=== PATIENT | female | born 1990 | race Caucasian/White ===

== ENCOUNTER 2017-09-09 23:10 | Emergency (ER) | payer BC, OTHER ==
[~2017-09-09] VITALS: Ht 154.9 cm; Wt 57.4 kg
[2017-09-09 23:18] VITALS: TEMP 36.7; Ht 154.9 cm; Wt 57.4 kg
[2017-09-10 00:05] LABS: BASO % 0.2 %; BASO ABS # 0.01 K/uL (0-0.2); EOS % 1.5 %; EOS ABS # 0.09 K/uL (0-0.5); HEMOGLOBIN 13.7 g/dL (12.0-16.0); IG# 0.01 K/uL (0.00-0.02); LYMPH % 36.6 %; LYMPH ABS # 2.15 K/uL (1.2-3.4); MEAN CELL VOLUME 90.9 fL (80-100); MEAN CORPUSCULAR HEMOGLOBIN 31.9 pg (25-34); MEAN CORPUSCULAR HGB CONC 35.1 g/dl (32-36); MEAN PLATELET VOLUME 9.8 fL (7.4-10.4); MONO ABS # 0.41 K/uL (0.11-0.59); NEUT % 54.5 %; NEUT ABS # 3.21 K/uL (1.4-6.5); PLATELET COUNT 234 K/uL (130-400); RED CELL DISTRIBUTION WIDTH CV 12.6 % (11.5-14.5); RED CELL DISTRIBUTION WIDTH SD 42.1 fL (36.4-46.3); WHITE BLOOD COUNT 5.88 K/uL (4.8-10.8)
[2017-09-10 00:26] LABS: ALBUMIN 3.6 gm/dl (3.4-5.0); ALT/SGPT 20 U/L (12-78); AST/SGOT 18 U/L (15-37); BLOOD UREA NITROGEN 9 mg/dl (7-18); CALCIUM 8.7 mg/dl (8.5-10.1); CARBON DIOXIDE 30 mmol/L (21-32); GLUCOSE 105 mg/dl (70-99); LIPASE 198 U/L (73-393); POTASSIUM 3.7 mmol/L (3.5-5.1); SODIUM 140 mmol/L (136-145)
[2017-09-10 00:29] LABS: ALKALINE PHOSPHATASE 126 U/L (45-117); TOTAL PROTEIN 7.5 gm/dl (6.4-8.2)
[2017-09-10 02:07] VITALS: BP 119/66; PULSE 79; O2SAT 97
--- NOTE | 2017-09-10 05:29 | EMERGENCY ROOM VISIT NOTE ---
History Report prepared by Miquel: José Arellano Under the Supervision of: Dr. Jessica Lema D.O. First contact with patient: 23:21 Chief Complaint: ABDOMINAL PAIN Stated Complaint: RIGHT SIDE ABD PAIN History of Present Illness The patient is a 27 year old female who presents to the Emergency Room with complaints of persistent right sided abdominal pain that began a few days ago. The patient states that her pain worsened acutely today, and she now feels nauseated as well. She has not had any vomiting episodes, and also denies any diarrhea, constipation, or burning with urination. The patient notes that she felt "really warm" today, but has not had any recorded fevers. The patient does have a confirmed kidney stone on the right that is 5 mm is size. 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 She was told that the stone was impassable, but has not followed with urology yet. The patient was not having any pain at the time of this finding. She has no history of surgeries on her abdomen. Source of History: patient Onset: a few days ago Position: abdomen (Right sided) Timing: worsening, other (Persistent) Associated Symptoms: + nausea, No vomiting, No diarrhea, No urinary symptoms Review of Systems See HPI for pertinent positives & negatives. A total of 10 systems reviewed and were otherwise negative. Past Medical & Surgical 5 mm right-sided kidney Stone diagnosed a few months ago. Family History Cancer Diabetes mellitus Gallbladder disease Heart disease Hypertension Kidney disease Kidney stones Lung disease Seizures Social History Smoking Status: Never Smoker Alcohol Use: occasionally Housing Status: lives with significant other Occupation Status: employed Physical Exam Vital Signs Date Time Temp Pulse Resp B/P (MAP) Pulse Ox O2 Delivery O2 Flow Rate FiO2 09/10/17 02:07 79 18 119/66 97 Room Air 09/10/17 01:19 80 18 118/69 99 Room Air 09/09/17 23:18 36.7 89 18 121/71 98 Room Air Physical Exam HEENT: Head - normocephalic and atraumatic Pupils are equal, round, and reactive to light. Extraocular eye muscles are intact, and sclera are anicteric. Nose - moist nasal mucosa without discharge. Mouth - moist buccal mucosa. Oropharynx is nonerythematous and there is no tonsillar exudate or edema noted. Neck: Supple; no cervical lymphadenopathy, no thyromegaly. Heart: Regular rate and rhythm. There is a normal S1 and S2 with no murmurs, clicks, or gallops appreciated. Lungs: Clear to auscultation bilaterally with no wheezes, rales, or rhonchi. Abdomen: Soft, with tenderness to palpation in the right lower quadrant, nondistended, with good bowel sounds. There are no palpable pulsatile masses or hepatosplenomegaly. There is no guarding, rigidity, or rebound noted. Extremities: No evidence of cyanosis, clubbing, or edema. There are easily palpable peripheral pulses. Skin: warm and dry with good turgor and no rashes. Medical Decision & Procedures ER Provider Diagnostic Interpretation: Radiology results as stated below per my review and the radiologist's interpretation: US RUQ: The gallbladder is contracted, limiting assessment. No clear shadowing stones or findings or inflammation. No biliary ductal dilation. There is a 5 mm calculus to the upper pole of the right kidney. There is also a 1.6 cm septated cystic mass which. No hydronephrosis. Radiologist: Derick Baker M.D. US APPENDIX: The appendix is not definitively identified. There is a trace amount of free fluid in the RLQ. Laboratory Results 09/09/17 23:45 Red Blood Count 4.29, Mean Corpuscular Volume 90.9, Mean Corpuscular Hemoglobin 31.9, Mean Corpuscular Hemoglobin Concent 35.1, Mean Platelet Volume 9.8, Neutrophils (%) (Auto) 54.5, Lymphocytes (%) (Auto) 36.6, Monocytes (%) (Auto) 7.0, Eosinophils (%) (Auto) 1.5, Basophils (%) (Auto) 0.2, Neutrophils # (Auto) 3.21, Lymphocytes # (Auto) 2.15, Monocytes # (Auto) 0.41, Eosinophils # (Auto) 0.09, Basophils # (Auto) 0.01 09/09/17 23:45 Test 09/09/17 23:45 White Blood Count 5.88 K/uL (4.8-10.8) Red Blood Count 4.29 M/uL (4.2-5.4) Hemoglobin 13.7 g/dL (12.0-16.0) Hematocrit 39.0 % (37-47) Mean Corpuscular Volume 90.9 fL (80-100) Mean Corpuscular Hemoglobin 31.9 pg (25-34) Mean Corpuscular Hemoglobin Concent 35.1 g/dl (32-36) Platelet Count 234 K/uL (130-400) Mean Platelet Volume 9.8 fL (7.4-10.4) Neutrophils (%) (Auto) 54.5 % Lymphocytes (%) (Auto) 36.6 % Monocytes (%) (Auto) 7.0 % Eosinophils (%) (Auto) 1.5 % Basophils (%) (Auto) 0.2 % Neutrophils # (Auto) 3.21 K/uL (1.4-6.5) Lymphocytes # (Auto) 2.15 K/uL (1.2-3.4) Monocytes # (Auto) 0.41 K/uL (0.11-0.59) Eosinophils # (Auto) 0.09 K/uL (0-0.5) Basophils # (Auto) 0.01 K/uL (0-0.2) RDW Standard Deviation 42.1 fL (36.4-46.3) RDW Coefficient of Variation 12.6 % (11.5-14.5) Immature Granulocyte % (Auto) 0.2 % Immature Granulocyte # (Auto) 0.01 K/uL (0.00-0.02) Urine Color YELLOW Urine Appearance CLEAR (CLEAR) Urine pH 6.5 (4.5-7.5) Urine Specific [place] 1.010 (1.000-1.030) Urine Protein NEG (NEG) Urine Glucose (UA) NEG (NEG) Urine Ketones NEG (NEG) Urine Occult Blood NEG (NEG) Urine Nitrite NEG (NEG) Urine Bilirubin NEG (NEG) Urine Urobilinogen NEG (NEG) Urine Leukocyte Esterase NEG (NEG) Urine Test NEG (NEG) Anion Gap 2.0 mmol/L (3-11) Est Creatinine Clear Calc Drug Dose 77.9 ml/min Estimated GFR () 103.0 Estimated GFR (Non- 88.9 BUN/Creatinine Ratio 10.2 (10-20) Calcium Level 8.7 mg/dl (8.5-10.1) Total Bilirubin 0.2 mg/dl (0.2-1) Direct Bilirubin < 0.1 mg/dl (0-0.2) Aspartate Amino Transf (AST/SGOT) 18 U/L (15-37) Alanine Aminotransferase (ALT/SGPT) 20 U/L (12-78) Alkaline Phosphatase 126 U/L (45-117) Total Protein 7.5 gm/dl (6.4-8.2) Albumin 3.6 gm/dl (3.4-5.0) Lipase 198 U/L (73-393) Laboratory results per my review. ED Course 1124: Past medical records reviewed. The patient was evaluated in room B7. A complete history and physical exam was performed. Laboratory studies were drawn as above. 1157: I reviewed the patient's urine dip at this time. There are no red cells. The patient went for an ultrasound of the right upper quadrant and right lower quadrant. 0123: I checked on the patient she is doing well. 0149: Upon reevaluation, the patient is resting in bed. I discussed findings and results with her. She verbalized agreement of the treatment plan and will follow-up with her PCP. The patient was discharged home. Medical Decision The patient is a 27 year old female who presents to the Emergency Department for right sided abdominal pain. Differential Diagnosis includes; Ureteral colic, pyelonephritis, cholecystitis, pancreatitis, GERD, ectopic and appendicitis. Laboratory Results were reviewed and shows; no leukocytosis, stable hemoglobin and hematocrit, normal renal function, normal lipase, normal LFTs with the exception of Alk-Phos slightly elevated at 126. Glucose of 105. The patient's urinalysis was reviewed and shows; no RBCs, trace WBCs. Urine was negative. This is a 27-year-old female patient presents to the emergency department with right-sided abdominal pain. The patient underwent a CT scan sometime ago which showed a 5 mm right kidney stone within the renal pelvis. The patient had no pain at that time. However, when the pain developed on the right side of her abdomen, she thought this may be secondary to that stone. Urinalysis was unremarkable and had no red blood cells. On physical exam, the patient pointed to the right upper quadrant, under her ribs as to the location of her pain. However on the exam, she had some reproducible discomfort in the right lower quadrant over McBurney's point. Ultrasound could not visualize the appendix. I explained this to the patient. She did have some free fluid within the pelvis. We talked about the possibility of an ovarian cyst. However, the patient's pain was too high up to be consistent with pelvic pain. I reviewed the ultrasound findings including the cystic mass described in the right kidney. I suggested she go back to her PCP and discuss the results of the previous CT scan as well as the ultrasound. If she develops a fever, vomiting or worsening abdominal pain, she should return to the emergency department. Medication Reconcilliation Current Medication List: was personally reviewed by me Blood Pressure Screening Patient's blood pressure: Normal blood pressure Impression Primary Impression: Right sided abdominal pain Scribe Attestation The scribe's documentation has been prepared under my direction and personally reviewed by me in its entirety. I confirm that the note above accurately reflects all work, treatment, procedures, and medical decision making performed by me. Departure Information Dispostion Home / Self-Care Forms HOME CARE DOCUMENTATION FORM, IMPORTANT VISIT INFORMATION Patient Instructions My [facility] Additional Instructions Rest. take a bland diet and plenty of clear liquids Follow up with PCP in next 1-2 weeks with regards to cystic mass in the right kidney If you develop a fever, vomiting or worsening pain, return to the ER.
--- NOTE | 2017-09-10 07:52 | DIAGNOSTIC IMAGING REPORT ---
ABDOMINAL ULTRASOUND, RIGHT UPPER QUADRANT HISTORY: Right upper quadrant pain. eval the gb and right kidney. COMPARISON: None. FINDINGS: Pancreas: The pancreas demonstrates a normal echotexture. Liver: Unremarkable. Gallbladder: The gallbladder is contracted. No definite gallbladder wall thickening. No gallstones. CBD: 3.6 mm. Right kidney: No hydronephrosis. A 1.6 cm septated cystic lesion is noted. Question of a 5 mm stone within the upper pole. IMPRESSION: 1. The gallbladder is contracted. No definite gallbladder wall thickening. No gallstones. 2. A 1.6 cm septated cystic lesion within the right kidney. This favors a complex cyst. Recommend follow-up nonemergent renal MRI for further evaluation. 3. These findings were called/faxed to the emergency Department following dictation given the recommended follow-up. Electronically signed by: Albert Lino M.D. 09/10/2017 7:51 AM Dictated Date/Time: 09/10/2017 7:48 AM
--- NOTE | 2017-09-10 07:54 | DIAGNOSTIC IMAGING REPORT ---
APPENDIX ULTRASOUND HISTORY: eval the appendix COMPARISON: None. FINDINGS: Transabdominal scanning of the right lower quadrant was performed. There is a tubular structure within the right lower quadrant which measures 4 mm and is compressible. However, a blind-end cannot be confirmed. Therefore, this does not clearly represent the appendix. There are no fluid collections or masses within the right lower quadrant. IMPRESSION: The appendix was not identified with certainty. Trace fluid is identified within the right lower quadrant. Electronically signed by: Albert Lino M.D. 09/10/2017 7:53 AM Dictated Date/Time: 09/10/2017 7:51 AM
== END 2017-09-10 02:12 | disposition home or self-care (01) ==
LOC: C.EDB 23:11
DX: R10.9 Unspecified abdominal pain (principal); Z83.3 Family history of diabetes mellitus; Z82.49 Family history of ischemic heart disease and other diseases of the circulatory system; Z84.1 Family history of disorders of kidney and ureter; Z82.0 Family history of epilepsy and other diseases of the nervous system